=== PATIENT | female | born 1970 | race Caucasian/White ===

== ENCOUNTER 2019-11-20 01:19 | Emergency (ER) | payer SELFPAY ==
[2019-11-20] MEDS ORDERED: HYDROcodone/Acetaminophen 5/325 mg Tablet ONE (02:01)
[2019-11-20] MEDS ORDERED: Adacel (T-DAP) 0.5 ML SYRINGE ONE (02:01)
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
== END 2019-11-20 02:54 | disposition home or self-care (01) ==
LOC: EDSEX 01:19 → NAV ERS 01:19
DX: S22.20XA Unspecified fracture of sternum, initial encounter for closed fracture (principal); S80.211A Abrasion, right knee, initial encounter; S80.212A Abrasion, left knee, initial encounter; S80.812A Abrasion, left lower leg, initial encounter; R07.9 Chest pain, unspecified; M54.2 Cervicalgia; F41.9 Anxiety disorder, unspecified; F31.9 Bipolar disorder, unspecified; F17.210 Nicotine dependence, cigarettes, uncomplicated; Z79.899 Other long term (current) drug therapy; V89.2XXA Person injured in unspecified motor-vehicle accident, traffic, initial encounter
CPT/HCPCS: 71120; 90471; 90715

== ENCOUNTER 2020-03-31 17:54 | Emergency (ER) | payer SELFPAY ==
--- NOTE | 2020-03-31 19:16 | RAD ---
THREE VIEWS LEFT ANKLE: History: Pain. Injury. FINDINGS: Lateral soft tissue swelling. Ankle mortise is intact. No fracture. Spurring of the calcaneus is noted. IMPRESSION: Lateral soft tissue swelling without fracture. POS: PPP
== END 2020-03-31 18:49 | disposition home or self-care (01) ==
LOC: NAV ERS 17:54
DX: S93.402A Sprain of unspecified ligament of left ankle, initial encounter (principal); F41.9 Anxiety disorder, unspecified; F31.9 Bipolar disorder, unspecified; F17.210 Nicotine dependence, cigarettes, uncomplicated; Z79.899 Other long term (current) drug therapy; W01.0XXA Fall on same level from slipping, tripping and stumbling without subsequent striking against object, initial encounter